=== PATIENT | male | born 1990 | race American Indian/Alaskan Native ===

== ENCOUNTER 2021-11-30 19:26 | Emergency (ER) | payer SELFPAY ==
[2021-11-30 21:05] VITALS: BP 155/90
--- NOTE | 2021-12-01 02:57 | XRay Report ---
Left-sided rib series with frontal chest 4 views INDICATION: Left rib and flank pain IMPRESSION: No discrete rib fracture identified. The lungs are clear. No pleural effusion or pneumoth orax. Signer Name: Andrew Dolan MD Signed: 12/01/2021 2:53 AM Workstation Name: [id number]
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
== END 2021-12-01 06:58 | disposition home or self-care (01) ==
LOC: ED 19:26
DX: M54.50 Low back pain, unspecified (principal); V89.2XXA Person injured in unspecified motor-vehicle accident, traffic, initial encounter; Y93.89 Activity, other specified; Y92.89 Other specified places as the place of occurrence of the external cause; Y99.8 Other external cause status
CPT/HCPCS: 99283